=== PATIENT | female | born 1980 | race Caucasian/White ===

== ENCOUNTER 2017-02-02 09:09 | Emergency (ER) | payer BC ==
[2017-02-02] MEDS ORDERED: Diphtheria,Pertussis(Acell),Tetanus Vaccine 0.5 ML SDV inactive IM ONE (09:51)
[2017-02-02] MEDS ORDERED: Lidocaine 1% 50 ML MDV INJECT ONE (10:58)
--- NOTE | 2017-02-02 11:41 | EDM.PDOC ---
ED HPI GENERAL MEDICAL PROBLEM - General Chief Complaint: Bite:Animal, Insect Stated Complaint: DOG BITE Time Seen by Provider: 02/02/17 09:47 Source of Information: Reports: Patient History Limitations: Reports: No Limitations - History of Present Illness INITIAL COMMENTS - FREE TEXT/NARRATIVE: The patient presents with a dog bite. She has 2 dogs and she took 1 dog out and the other dog accidentally shut a locked door and locked her out. She went up to the neighbors to get an extra vargas and their dog and her dog got into a fight. She tried to break them up and she got bit in the left knee and left index finger. Her tetanus is not up to date. She is right handed. The dogs are up to date with their shots and they can be observed for 10 days. The police came to talk with the patient. Onset: Sudden Duration: Minutes: Location: Reports: Upper Extremity, Left (Index finger), Lower Extremity, Left ( Knee) Quality: Reports: Sharp Severity: Moderate Improves with: Reports: None Worsens with: Reports: None Associated Symptoms: Reports: No Other Symptoms Left Leg Pain Score (Numeric/FACES): 5 - Related Data Allergies Allergy/AdvReac Type Severity Reaction Status Date / Time Penicillins Allergy Anaphylactic Verified 02/02/17 09:26 Shock Home Meds: Home Meds Doxycycline [Vibramycin] 100 mg PO Q12HR #20 cap 02/02/17 [Rx] Esomeprazole Magnesium [Nexium 24Hr] 20 mg PO DAILY 02/02/17 [History] Past Medical History HEENT History: Reports: Impaired Vision Cardiovascular History: Reports: Other (See Below) 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) Other OB/BYN History: eposcopy Musculoskeletal History: Reports: Arthritis Oncologic (Cancer) History: Reports: Cervix - Past Surgical History HEENT Surgical History: Reports: Other (See Below) Other HEENT Surgeries/Procedures: ear surgery Social & Family History - Family History Family Medical History: Noncontributory - Tobacco Use Smoking Status *Q: Never Smoker - Caffeine Use Caffeine Use: Reports: Coffee, Soda - Recreational Drug Use Recreational Drug Use: No ED ROS GENERAL - Review of Systems Review Of Systems: See Below Constitutional: Reports: No Symptoms HEENT: Reports: No Symptoms Respiratory: Reports: No Symptoms Cardiovascular: Reports: No Symptoms Endocrine: Reports: No Symptoms GI/Abdominal: Reports: No Symptoms : Reports: No Symptoms Musculoskeletal: Reports: Other (left knee puncture wounds and injury to her left index finger) Neurological: Reports: No Symptoms ED EXAM, ANIMAL BITE - Physical Exam Exam: See Below Exam Limited By: No Limitations General Appearance: Alert, No Apparent Distress Ears: Normal External Exam Nose: Normal Inspection Head: Atraumatic, Normocephalic Neck: Normal Inspection Respiratory/Chest: No Respiratory Distress Extremities: Other (4 puncture wounds and abrasion just distal to the left knee. There is mild to moderate bleeding. There is a small puncture wound to her left index finger and edema and ecchymosis to the distal index finger. She has good sensation and pulses distally.) ED ANIMAL BITE PROCEDURES - Laceration/Wound Repair Left Knee Lac/Wound Length In cm: 0.5 Appearance: Subcutaneous, Linear Distal NVT: Neuro & Vascular Intact, No Tendon Injury Anesthetic Type: Local Local Anesthesia - Lidocaine (Xylocaine): 1% Plain Skin Prep: Saline Exploration/Debridement/Repair: Wound Explored, in a Bloodless Field, Explored to Base Closed With: Sutures Suture Size: 3-0 # of Sutures: 1 Suture Type: Nylon, Interrupted, Simple Tetanus Status Addressed: Yes Complications: No Progress/Comments: I sutured 3 more of her puncture wounds. Course - Vital Signs Last Recorded V/S: Last Vital Signs Temp 97.8 F 02/02/17 09:21 Pulse 101 H 02/02/17 09:21 Resp 16 02/02/17 09:21 BP 120/93 H 02/02/17 09:21 Pulse Ox 99 02/02/17 09:21 - Orders/Labs/Meds Orders: Active Orders 24 hr Category Date Time Status Vaccines to be Administered [RC] PER UNIT ROUTINE Care 02/02/17 09:51 Active Fingers Second Digit Lt F1 [CR] Stat Exams 02/02/17 09:51 Taken Knee Min 4V Lt [CR] Stat Exams 02/02/17 09:50 Taken Meds: Medications Discontinued Medications Generic Name Dose Route Start Last Admin Trade Name Freq PRN Reason Stop Dose Admin Diphtheria/Tetanus/Acell Pertussis 0.5 ml 02/02/17 09:51 02/02/17 09:58 Boostrix IM 02/02/17 09:52 0.5 ml .ONCE ONE Administration Lidocaine HCl 50 ml 02/02/17 10:58 02/02/17 11:15 Xylocaine 1% INJECT 02/02/17 10:59 50 ml ONETIME ONE Administration - Re-Assessments/Exams Free Text/Narrative Re-Assessment/Exam: 02/02/17 11:45 Her x-rays look good. I wanted to leave the wound open to avoid infection but the patient wanted them closed up. I explained she is at higher risk of infection. She understands. I will give her some doxycycline. 02/02/17 11:47 I am worried she may have a tendon injury to her left index finger. When she relaxes she has a swan neck deformity. I will splint her and have her follow up with Dr Broderick. Departure - Departure Time of Disposition: 11:50 Disposition: Home, Self-Care 01 Condition: good Clinical Impression: Dog bite Qualifiers: Encounter type: initial encounter Qualified Code(s): W54.0XXA - Bitten by dog, initial encounter Finger sprain Qualifiers: Encounter type: initial encounter Finger: index finger Sprain of finger site: other site Laterality: left Qualified Code(s): S63.691A - Other sprain of left index finger, initial encounter - Discharge Information Prescriptions: Doxycycline [Vibramycin] 100 mg PO Q12HR #20 cap Referrals: Raymond Broderick MD [Physician] - 1 Week Forms: ED Department Discharge Additional Instructions: Wash the wounds with warm soapy water 2 times per day and apply antibiotic ointment after. The sutures can come out in 7 to 10 days. Take the doxycycline 1 pill 2 times per day for 10 days. Take tylenol or motrin for pain. Look for any sign of infection such as redness, swelling, pain or drainage. Please return if you are worse. Wear the finger splint and follow up with Dr Broderick in 1 to 2 weeks. - My Orders Last 24 Hours: My Active Orders 02/02/17 09:50 Knee Min 4V Lt [CR] Stat 02/02/17 09:51 Vaccines to be Administered [RC] PER UNIT ROUTINE Fingers Second Digit Lt F1 [CR] Stat - Assessment/Plan Last 24 Hours: My Active Orders 02/02/17 09:50 Knee Min 4V Lt [CR] Stat 02/02/17 09:51 Vaccines to be Administered [RC] PER UNIT ROUTINE Fingers Second Digit Lt F1 [CR] Stat
[2017-02-02 12:14] VITALS: BP 120/91
--- NOTE | 2017-02-02 12:55 | CR ---
Left knee: Four views of the left knee were obtained. Comparison: No previous knee exam. Small amount of soft tissue air noted anteriorly. Mild soft tissue swelling is identified. Medial and lateral joint spaces are maintained in height. No joint effusion is seen. No fracture or other bony abnormality is seen. Impression: 1. Soft tissue findings. No acute bony abnormality is seen. Diagnostic code #3
--- NOTE | 2017-02-02 12:55 | CR ---
Left second finger: Four views of left second finger were obtained. Mild soft tissue swelling is seen. No opaque foreign object is identified. No fracture or other bony abnormality is seen. Impression: 1. Mild soft tissue swelling. Other portions of the left second finger exam are unremarkable. Diagnostic code #2
== END 2017-02-02 12:00 | disposition home or self-care (01) ==
LOC: JD.ED 09:09
DX: S81.052A Open bite, left knee, initial encounter (principal); S61.251A Open bite of left index finger without damage to nail, initial encounter; S63.691A Other sprain of left index finger, initial encounter; Z23 Encounter for immunization; Z88.0 Allergy status to penicillin; Z85.41 Personal history of malignant neoplasm of cervix uteri; Z79.899 Other long term (current) drug therapy; Z98.890 Other specified postprocedural states; W54.0XXA Bitten by dog, initial encounter
CPT/HCPCS: 12001; 73140-26-F1; 73140-F1; 73564-26-LT; 73564-LT; 90471; 90715; 99283-25; 99284-25

== ENCOUNTER 2018-12-23 15:31 | Emergency (ER) | payer BC, OTHER ==
[2018-12-23] MEDS ORDERED: Ketorolac 30 MG/ML SDV IM ONE (16:07)
[2018-12-23] MEDS ORDERED: Ketorolac 30 MG/ML SDV ONE (16:18)
--- NOTE | 2018-12-23 16:23 | EDM.PDOC ---
<Yonny Palmer - Last Filed: 12/23/18 16:25> ED HPI GENERAL MEDICAL PROBLEM - General Chief Complaint: Upper Extremity Injury/Pain Stated Complaint: RIGHT WRIST INJURY Time Seen by Provider: 12/23/18 15:37 - Related Data Allergies Allergy/AdvReac Type Severity Reaction Status Date / Time amoxicillin Allergy Airway Verified 12/23/18 15:43 Tightness Penicillins Allergy Anaphylactic Verified 12/23/18 15:42 Shock Home Meds: Home Meds Esomeprazole Magnesium [Nexium 24Hr] 20 mg PO DAILY 02/02/17 [History] Clindamycin HCl 300 mg PO TID 5 Days #15 capsule 12/23/18 [Rx] Doxycycline [Vibramycin] 100 mg PO BID 5 Days #10 cap 12/23/18 [Rx] Saccharomyces Boulardii [Florastor] 250 mg PO BID #30 capsule 12/23/18 [Rx] medroxyPROGESTERone Acetate [Depo-Provera] 150 mg IM ASDIRECTED 12/23/18 [ History] ED EXAM, GENERAL - Physical Exam Exam Limited By: No Limitations General Appearance: Alert, WD/WN, No Apparent Distress Eye Exam: Bilateral Eye: Normal Inspection Respiratory/Chest: No Respiratory Distress, Lungs Clear, Normal Breath Sounds, No Accessory Muscle Use, Chest Non-Tender Cardiovascular: Normal Peripheral Pulses, Regular Rate, Rhythm, No Edema, No Gallop, No JVD, No Murmur, No Rub Peripheral Pulses: 2+: Radial (L), Radial (R) Extremities: Normal Capillary Refill, Arm Pain (One 3 cm superficial laceration noted on the distal aspect of the posterior RIGHT forearm near the styloid process. Soft tissue swelling on the posterior aspect of the proximal RIGHT forearm.), Limited Range of Motion (AROM-is limited due to increased pain. PROM- full), Redness. No: Increased Warmth Neurological: Alert, Oriented, Normal Cognition, Normal Gait, No Motor/Sensory Deficits Psychiatric: Normal Affect, Normal Mood Skin Exam: Warm, Dry, Intact, No Rash, Erythema (located around each dog bite injury. ) Course - Vital Signs Last Recorded V/S: Last Vital Signs Temp 97.9 F 12/23/18 15:38 Pulse 102 H 12/23/18 15:38 Resp 16 12/23/18 15:38 BP 138/80 12/23/18 15:38 Pulse Ox 100 12/23/18 15:38 - Orders/Labs/Meds Orders: Active Orders 24 hr Category Date Time Status Wrist Comp Min 3V Rt [CR] Stat Exams 12/23/18 16:02 Ordered Meds: Medications Discontinued Medications Generic Name Dose Route Start Last Admin Trade Name Gabriella PRN Reason Stop Dose Admin Ketorolac Tromethamine 30 mg 12/23/18 16:07 12/23/18 16:21 Toradol IM 12/23/18 16:08 30 mg ONETIME ONE Administration Departure - Departure Disposition: Home, Self-Care 01 Clinical Impression: Right wrist sprain Dog bite Qualifiers: Encounter type: initial encounter Qualified Code(s): W54.0XXA - Bitten by dog, initial encounter - Discharge Information Prescriptions: Clindamycin HCl 300 mg PO TID 5 Days #15 capsule Doxycycline [Vibramycin] 100 mg PO BID 5 Days #10 cap Saccharomyces Boulardii [Florastor] 250 mg PO BID #30 capsule Instructions: Animal Bite, Adult, [id number], Cryotherapy, [id number], Wrist Sprain, Adult Referrals: PCP,None [Primary Care Provider] - Forms: ED Department Discharge Additional Instructions: You were seen in the ED today for dog bite and fall on your wrist. Your Xray was negative for fracture, but it is possible that you may have sprained your wrist. Therefore, you will be sent home with a splint and recommend you follow up with orthopedics if not better in a week or so. You can make an appointment with orthopedic Dr. Broderick by calling . In the mean time make sure to rest, ice and use over the counter ibuprofen for pain control. You will also be sent home with 2 antibiotics to prevent infection from the dog bite. You will need to take Doxycyline 100mg twice per day AND Clindamycin 300mg three times per day for 5 days for completion of treatment. Please take ALL of your your medications as prescribed, otherwise infection could get worse. Please return to ED if new or worsening symptoms. - My Orders Last 24 Hours: My Active Orders 12/23/18 16:02 Wrist Comp Min 3V Rt [CR] Stat - Assessment/Plan Last 24 Hours: My Active Orders 12/23/18 16:02 Wrist Comp Min 3V Rt [CR] Stat <Seble Olsen - Last Filed: 12/23/18 16:53> ED HPI GENERAL MEDICAL PROBLEM - General Source of Information: Reports: Patient History Limitations: Reports: No Limitations - History of Present Illness INITIAL COMMENTS - FREE TEXT/NARRATIVE: 38 yo F comes in for dog bite and a fall on her wrist after trying to separate her 2 dogs that were fighting. She was holding a dog and slipped and fell on her wrist in palmar flexion. She is now having 7/10 pain, with some tingling but denies any numbness. She states her hand "feels cold". She has limited active ROM bc "it feels stuck". Full passive ROM. Neurovascularly intact. Her tetanus is UTD. Dogs have been vaccinated for rabies. She is allergic to PCN. 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 Neurological History: Reports: Migraines Oncologic (Cancer) History: Reports: Cervix Other Oncologic History: pre cancerous cells - Infectious Disease History Infectious Disease History: Reports: Chicken Pox, Measles - Past Surgical History HEENT Surgical History: Reports: Other (See Below) Other HEENT Surgeries/Procedures: ear surgery Social & Family History - Family History Family Medical History: Noncontributory - Tobacco Use Smoking Status *Q: Never Smoker Second Hand Smoke Exposure: No - Caffeine Use Caffeine Use: Reports: Other Other Caffeine Use: powder mix drink with caffeine - Recreational Drug Use Recreational Drug Use: No Review of Systems - Review of Systems Review Of Systems: ROS reveals no pertinent complaints other than HPI. ED EXAM, GENERAL - Physical Exam Exam: See Below Head: Atraumatic, Normocephalic Neck: Normal Inspection, Supple, Non-Tender, Full Range of Motion Course - Re-Assessments/Exams Free Text/Narrative Re-Assessment/Exam: 12/23/18 16:16 I have ordered XR of R wrist and Toradol for pain. 12/23/18 16:[address] Harrington- nothing acute seen. Will send pt home with a splint and can f/u with ortho if not better in a week or so. Will also send home with Doxycycline 100mg BID and Clindamycin 300 TID x 4 days for prophylaxis for dog bite. Departure - Departure Time of Disposition: 16:38 Condition: Fair - Discharge Information *PRESCRIPTION DRUG MONITORING PROGRAM REVIEWED*: Not Applicable *COPY OF PRESCRIPTION DRUG MONITORING REPORT IN PATIENT ALECIA: Not Applicable
[2018-12-23 17:37] VITALS: BP 109/77
--- NOTE | 2018-12-24 06:22 | CR ---
Right wrist: Four views of the right wrist were obtained. Comparison: No prior wrist exam. Joint spaces are preserved. No fracture, dislocation or other bony abnormality is seen. Impression: 1. No abnormality is seen on right wrist exam. Diagnostic code #1
== END 2018-12-23 17:10 | disposition home or self-care (01) ==
LOC: JD.ED 15:31
DX: S51.851A Open bite of right forearm, initial encounter (principal); S63.501A Unspecified sprain of right wrist, initial encounter; Z88.1 Allergy status to other antibiotic agents; Z88.0 Allergy status to penicillin; Z79.899 Other long term (current) drug therapy; W54.0XXA Bitten by dog, initial encounter
CPT/HCPCS: 73110; 96372; 99283; J1885

== ENCOUNTER 2019-02-07 18:10 | Emergency (ER) | payer OTHER ==
[2019-02-07 18:16] VITALS: BP 148/107
[2019-02-07] MEDS ORDERED: Acetaminophen/oxyCODONE 325-5 MG Tab PO ONE (18:49)
[2019-02-07] MEDS ORDERED: Ketorolac 60 MG/2 ML SDV ONE (19:21)
[2019-02-07] MEDS ORDERED: Bupivacaine 0.5% 10 ML SDV ONE (19:21)
[2019-02-07] MEDS ORDERED: Lidocaine 1% 10 ML MDV ONE (19:21)
[2019-02-07] MEDS ORDERED: Ketorolac 60 MG/2 ML SDV IM ONE (19:26)
[2019-02-07] MEDS ORDERED: Bupivacaine 0.5% 10 ML SDV INJECT ONE (20:04)
[2019-02-07] MEDS ORDERED: Lidocaine 1% 10 ML MDV INJECT ONE (20:05)
--- NOTE | 2019-02-07 21:24 | EDM.PDOC ---
ED HPI GENERAL MEDICAL PROBLEM - General Chief Complaint: Lower Extremity Injury/Pain Stated Complaint: L RING FINGER INJURY Time Seen by Provider: 02/07/19 19:00 Source of Information: Reports: Patient History Limitations: Reports: No Limitations - History of Present Illness INITIAL COMMENTS - FREE TEXT/NARRATIVE: 38-year-old female presents for treatment of a ring stuck on her left hand ring finger. Patient reports she was reaching into a bin at work and got her hand caught. She states that the ring moved up to her PIP joint. She pulled her hand out and had significant pain so therefore she pushed the ring more proximally. She states that her finger immediately swelled and she has been unable to remove her wedding ring since. When she is reporting significant pain. She says sensation to light touch but states that he does feel rather numb and tingly. Has a small laceration under the ring. 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 Neurological History: Reports: Migraines Psychiatric History: Reports: None Endocrine/Metabolic History: Reports: None Hematologic History: Reports: None Immunologic History: Reports: None Oncologic (Cancer) History: Reports: Cervix Other Oncologic History: pre cancerous cells Dermatologic History: Reports: None - Infectious Disease History Infectious Disease History: Reports: Chicken Pox, Measles - Past Surgical History HEENT Surgical History: Reports: Other (See Below) Other HEENT Surgeries/Procedures: ear surgery Social & Family History - Family History Family Medical History: Noncontributory - Tobacco Use Smoking Status *Q: Never Smoker - Caffeine Use Caffeine Use: Reports: None Other Caffeine Use: powder mix drink with caffeine - Recreational Drug Use Recreational Drug Use: No Review of Systems - Review of Systems Review Of Systems: See Below Musculoskeletal: Reports: Joint Swelling (left rign finger greatest at the PIOP joint) Skin: Reports: Wound (small laceration to the left ring finger, proximal) Neurological: Reports: Numbness (left ring finger) ED EXAM, GENERAL - Physical Exam Exam: See Below Exam Limited By: No Limitations General Appearance: Alert, WD/WN, No Apparent Distress Respiratory/Chest: No Respiratory Distress Cardiovascular: Normal Peripheral Pulses, Regular Rate, Rhythm Peripheral Pulses: 3+: Radial (L) Extremities: Normal Capillary Refill, Limited Range of Motion (due to swelling to the left hand 4th finger), Redness (left hand 4th finger), Other (ring on the left hand 4th finger; PIP joint very swollen). No: Increased Warmth Neurological: Alert, Oriented, Normal Cognition Psychiatric: Normal Affect, Normal Mood Skin Exam: Warm, Dry, Normal Color, Wound/Incision (0.5 superficial cut to the dorsal left hand ring finge, proximal) Course - Vital Signs Last Recorded V/S: Last Vital Signs Temp 98.9 F 02/07/19 18:14 Pulse 92 02/07/19 18:14 Resp 16 02/07/19 18:14 BP 148/107 H 02/07/19 18:14 Pulse Ox 100 02/07/19 18:14 - Orders/Labs/Meds Meds: Medications Discontinued Medications Generic Name Dose Route Start Last Admin Trade Name Gabriella PRN Reason Stop Dose Admin Bupivacaine HCl Confirm 02/07/19 19:21 02/07/19 20:06 Sensorcaine-Mpf 0.5% Administered 02/07/19 19:22 Not Given Dose 10 ml .ROUTE .STK-MED ONE Bupivacaine HCl 10 ml 02/07/19 20:04 02/07/19 20:00 Sensorcaine-Mpf 0.5% INJECT 02/07/19 20:05 10 ml ONETIME ONE Administration Ketorolac Tromethamine Confirm 02/07/19 19:21 02/07/19 19:32 Toradol Administered 02/07/19 19:22 Not Given Dose 60 mg .ROUTE .STK-MED ONE Ketorolac Tromethamine 60 mg 02/07/19 19:26 02/07/19 19:25 Toradol IM 02/07/19 19:27 60 mg ONETIME ONE Administration Lidocaine HCl Confirm 02/07/19 19:21 02/07/19 20:06 Xylocaine 1% Administered 02/07/19 19:22 Not Given Dose 10 ml .ROUTE .STK-MED ONE Lidocaine HCl 10 ml 02/07/19 20:05 02/07/19 20:42 Xylocaine 1% INJECT 02/07/19 20:06 Not Given ONETIME ONE Oxycodone/Acetaminophen 1 tab 02/07/19 18:49 02/07/19 18:52 Percocet 325-5 Mg PO 02/07/19 18:50 1 tab ONETIME ONE Administration - Radiology Interpretation Free Text/Narrative:: x-ray of the left hand ring finger shows no acute fracture or dislocation. - Re-Assessments/Exams Free Text/Narrative Re-Assessment/Exam: 02/07/19 21:10 multiple attempts were made to cut the patient's ring, unfortunately, the ring was sauntered multiple times and she actually has 3 rings making one think band. A ring cutter was attempted but this was unsuccessful. Dr. Botello was then recruited to help. He performed a digital block with 4 ccs of Marcaine, 0.5%, this gave the patient adequate anesthesia. He then heavy wrapped her finger with packing material and left this on for approximately 15- 20 minutes. This allowed the finger to decrease in size and pushed the interstitial fluid back into the finger. He then quickly unwrapped the finger, greased the finger with butter and removes the ring successfully. X-rays were taken which did not show any fractures. this was reviewed with the patient. We will discharge her home at this time. Discharge instructions as documented. Departure - Departure Time of Disposition: 21:13 Disposition: Home, Self-Care 01 Condition: Good Clinical Impression: Finger swelling - Discharge Information *PRESCRIPTION DRUG MONITORING PROGRAM REVIEWED*: No *COPY OF PRESCRIPTION DRUG MONITORING REPORT IN PATIENT ALECIA: No Referrals: PCP,None [Primary Care Provider] - Forms: ED Department Discharge Additional Instructions: ice, elevation and ibuprofen to help with the swelling. Follow-up with PCP as needed. Please return to the ER should your symptoms change or worsen.
--- NOTE | 2019-02-08 19:35 | CR ---
Left fourth finger: Four views centered to the left fourth finger were obtained. Comparison: No prior fourth finger exam. Soft tissue swelling is noted. Joint spaces are preserved. Incidental cyst is noted within the third metacarpal head. No acute fracture, dislocation or other bony abnormality is seen. Impression: 1. Soft tissue swelling. No acute bony abnormality is seen on left fourth finger exam. Diagnostic code #2
== END 2019-02-07 21:40 | disposition home or self-care (01) ==
LOC: JD.ED 18:10
DX: M79.89 Other specified soft tissue disorders (principal); Z88.1 Allergy status to other antibiotic agents; Z88.0 Allergy status to penicillin; Z79.899 Other long term (current) drug therapy
CPT/HCPCS: 64450; 73140; 96372; 99283; A9270; J1885; J3490

== ENCOUNTER 2019-05-14 07:53 | Day surgery (SDC) | payer OTHER ==
--- NOTE | 2019-05-13 13:11 | PCM.PREANE ---
Preanesthetic Assessment - Anesthesia/Transfusion/Family Hx Anesthesia History: Prior Anesthesia Without Reaction Family History of Anesthesia Reaction: No Transfusion History: No Prior Transfusion(s) Intubation History: Unknown - Review of Systems General: No Symptoms Pulmonary: No Symptoms (Quit smokin ETOH: occasionally) Cardiovascular: Palpitations (Fish oil's have eliminated palpitations) Gastrointestinal: No Symptoms (GERD treated with nexium) Neurological: No Symptoms (Motion sickness with carnival rides), Headache ( migraines on occasion.) Other: Reports: None - Physical Assessment NPO Status Date: 05/13/19 NPO Status Time: 22:30 Vital Signs: BP:116/87 HR:78 RESP:16 SAT:97% Temp:98.0F Height: 1.6 m Weight: 72.575 kg ASA Class: 2 Mental Status: Alert & Oriented x3 Airway Class: Mallampati = 2 Dentition: Reports: Normal Dentition, Caries Thyro-Mental Finger Breadths: 3 Mouth Opening Finger Breadths: 3 ROM/Head Extension: Full Lungs: Clear to Auscultation, Normal Respiratory Effort Cardiovascular: Regular Rate, Regular Rhythm, No Murmurs - Lab Values: Laboratory Last Values MRSA (PCR) Negative 05/12/19 09:39 - Imaging/EKG Impressions: EKG: Sinus bradycardia rate=56, old anteroseptal infarct noted, poor r wave progression, mild right axis deviation. - Allergies Allergies/Adverse Reactions: Allergies Allergy/AdvReac Type Severity Reaction Status Date / Time amoxicillin Allergy Airway Verified 02/07/19 18:16 Tightness Penicillins Allergy Anaphylactic Verified 02/07/19 18:16 Shock - Anesthesia Plan Pre-Op Medication Ordered: None - Acknowledgements Anesthesia Type Planned: General Anesthesia Pt an Appropriate Candidate for the Planned Anesthesia: Yes Alternatives and Risks of Anesthesia Discussed w Pt/Guardian: Yes Pt/Guardian Understands and Agrees with Anesthesia Plan: Yes PreAnesthesia Questionnaire HEENT History: Reports: Impaired Vision Cardiovascular History: Reports: Other (See Below) 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 Neurological History: Reports: Migraines Psychiatric History: Reports: None Endocrine/Metabolic History: Reports: None Hematologic History: Reports: None Immunologic History: Reports: None Oncologic (Cancer) History: Reports: Cervix Other Oncologic History: pre cancerous cells Dermatologic History: Reports: None - Infectious Disease History Infectious Disease History: Reports: Chicken Pox, Measles - Past Surgical History HEENT Surgical History: Reports: Other (See Below) Other HEENT Surgeries/Procedures: ear surgery - HOME MEDS Home Medications: Home Meds Esomeprazole Magnesium [Nexium 24Hr] 20 mg PO DAILY 02/02/17 [History] Norgestimate-Ethinyl Estradiol [Ortho Tri-Cyclen Lo Tablet] 1 tab PO DAILY 02/07 [History] Acetaminophen/HYDROcodone [Dozier 325-5 MG] 1 - 2 tab PO Q6H PRN #15 tablet 05/14 [Rx] Aspirin 325 mg PO BID #84 tab 05/14/19 [Rx] - CURRENT (IN HOUSE) MEDS Current Meds: Current Medications Epinephrine HCl (Adrenalin) 3 mg .XX ONETIME ELIAS Stop: 05/14/19 16:00 Lactated Ringer's (Ringers, Lactated) 1,000 mls @ 125 mls/hr IV ASDIRECTED ELIAS Stop: 05/14/19 23:00 Lidocaine/Sodium Bicarbonate (Buffered Lidocaine 1% In Ns 8.4%) 0.25 ml IDERM ONETIME PRN PRN Reason: Prior to IV Start Stop: 05/14/19 18:00 Sodium Chloride (Saline Flush) 10 ml FLUSH ASDIRECTED PRN PRN Reason: Keep Vein Open Stop: 05/14/19 18:00
[~2019-05-14 07:53] MED LIST: Clindamycin Phosphate in D5W 900 MG in Premix Bag 1 BAG IV SCH; Dexamethasone 4 MG/ML SDV ONE; EPINEPHrine 1 MG/ML 30 ML MDV SCH; HYDROmorphone 0.5 MG/0.5 ML Syringe ONE; Ketorolac 30 MG/ML SDV ONE; Lactated Ringers 1,000 ML IV SCH; Lactated Ringers 1,000 ML ONE; Lidocaine 1% 6 ML ONE; Lidocaine 1%/Sod Bicarbonate in NS 8.4% 1 ML Syringe IDERM PRN; Midazolam 1 MG/ML 2 ML SDV ONE; Ondansetron 4 MG/2 ML SDV ONE; Propofol 200 MG/20 ML SDV ONE; Sodium Chloride 0.9% 10 ML Syringe FLUSH PRN; fentaNYL 250 MCG/5 ML SDV ONE
[2019-05-14] MEDS ORDERED: Bupivacaine 0.25% 10 ML SDV ONE (09:45)
[2019-05-14] MEDS ORDERED: Scopolamine 1.5 MG Transdermal Patch TRDERM PRN (09:47)
[2019-05-14] MEDS ORDERED: HYDROmorphone 0.5 MG/0.5 ML Syringe IVPUSH PRN (10:29)
[2019-05-14] MEDS ORDERED: Ondansetron 4 MG/2 ML SDV IVPUSH PRN (10:29)
[2019-05-14] MEDS ORDERED: diphenhydrAMINE 50 MG/ML SDV IVPUSH PRN (10:29)
[2019-05-14] MEDS ORDERED: fentaNYL 100 MCG/2 ML SDV IVPUSH PRN (10:29)
[2019-05-14] MEDS ORDERED: ePHEDrine 50 MG/ML SDV IVPUSH PRN (10:29)
[2019-05-14] MEDS ORDERED: Phenylephrine 1 MG in Sodium Chloride 0.9% 10 ML IV SCH (10:30)
--- NOTE | 2019-05-14 11:10 | PCM.POSTAN ---
POST ANESTHESIA ASSESSMENT - MENTAL STATUS Mental Status: Alert - VITAL SIGNS Vital Signs: Last Vital Signs Please refer to PACU nurses notes. - RESPIRATORY Respiratory Status: Respiratory Rate WNL, Airway Patent, O2 Saturation Stable, Supplemental Oxygen - CARDIOVASCULAR CV Status: Pulse Rate WNL, Blood Pressure Stable - GASTROINTESTINAL GI Status: No Symptoms - POST OP HYDRATION Hydration Status: Adequate & Stable
--- NOTE | 2019-05-14 12:31 | PCM48HPAN ---
Post Anesthesia Note - EVALUATION WITHIN 48HRS OF ANESTHETIC Vital Signs in Normal Range: Yes Patient Participated in Evaluation: Yes Respiratory Function Stable: Yes Airway Patent: Yes Cardiovascular Function Stable: Yes Hydration Status Stable: Yes Pain Control Satisfactory: Yes Nausea and Vomiting Control Satisfactory: Yes Mental Status Recovered: Yes Vital Signs: Last Vital Signs Temp 36.2 C 05/14/19 11:45 Pulse 78 05/14/19 08:05 Resp 14 05/14/19 11:50 BP 119/72 05/14/19 11:50 Pulse Ox 100 05/14/19 11:50
[2019-05-14 14:04] VITALS: BP 107/77; PULSE 71
--- NOTE | 2019-05-19 08:50 | PCM.OPNOTE ---
- General Post-Op/Procedure Note Date of Surgery/Procedure: 05/14/19 Operative Procedure(s): right knee video arthroscopy with chondroplasty of lateral femoral condyle and partial synovectomy of fat pad and plica Pre Op Diagnosis: right knee pain with chondromalacia Post-Op Diagnosis: Same Anesthesia Technique: General LMA, Local Primary Surgeon: Raymond Broderick Anesthesia Provider: Cielo Kim [employer] Attendant: Rosy Badillo in mLs: 5 Complications: None Condition: Good
--- NOTE | 2019-05-19 10:05 | OR ---
DATE OF OPERATION: 05/14/2019 SURGEON: Raymond Broderick MD OPERATION PERFORMED: Right knee video arthroscopy with chondroplasty of lateral femoral condyle and partial synovectomy and fat pad and plica. PREOPERATIVE DIAGNOSIS: Right knee pain with chondromalacia. 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 ANESTHESIA: General LMA with local. ANESTHESIA PROVIDER: Cielo Kim CRNA. RESEARCH AND DEVELOPMENT SPECIALIST: Dr. Rosy Badillo PA-C. ESTIMATED BLOOD LOSS: 5 mL. COMPLICATIONS: None. CONDITION: Stable. DESCRIPTION OF PROCEDURE: Patient was identified in the preop holding area. Proper site was marked and identified by the surgeon. The patient was taken back to the operating theater, where after adequate anesthesia, the patient's left lower extremity was placed in a well leg cummings. Right lower extremity had a nonsterile tourniquet applied and then was placed in a C-clamp cummings. Foot of the bed was then lowered. Right lower extremity was then sterilely prepped and draped in the usual sterile fashion. OR time-out was performed. The patient received 2 g IV Ancef. Right lower extremity was exsanguinated, and tourniquet was insufflated to 250 mmHg. Standard anterolateral portal incision was made, and scope trocar was introduced to the knee joint. Patellofemoral joint showed grade 1 chondromalacia of the patella. The patient did have significant synovial hypertrophy of the fat pad as well as plica on the medial side that did show significant erythema. At this time, attention was turned to the medial compartment. With the use of a spinal needle, anteromedial portal was created, and the probe was introduced. The patient's medial meniscus was intact. There was very little chondromalacia to the medial compartment. ACL was intact in the notch. Lateral compartment showed significant grade 2/3 chondromalacia changes of the lateral femoral condyle with a loose fragment noted. Tibial plateau showed grade 1 chondromalacia. At this time, a chondroplasty of lateral femoral condyle was done back to a stable rim of cartilage. Attention was turned back to the fat pad as well as the plica. The plica was resected as well as a partial synovectomy and fat pad was completed back to a stable rim. Excess saline was drained from the knee. 3-0 nylon sutures were used for closure of skin. The patient was placed in a sterile soft dressing and sent to PACU in stable condition. KIA /[id number]
== END 2019-05-14 12:45 | disposition home or self-care (01) ==
LOC: JD.SDS 07:53
PROVIDERS: ATTEND Orthopaedic Surgery
DX: M22.41 Chondromalacia patellae, right knee (principal); M67.261 Synovial hypertrophy, not elsewhere classified, right lower leg; M67.51 Plica syndrome, right knee; K21.9 Gastro-esophageal reflux disease without esophagitis; Z88.0 Allergy status to penicillin; Z87.891 Personal history of nicotine dependence; Z79.82 Long term (current) use of aspirin; Z79.899 Other long term (current) drug therapy
CPT/HCPCS: 29875; 81025; 87641; A9270; J0171; J1100; J1170; J1885; J2001; J2250; J2405; J2704; J3010; J3490; J7120; 01400

== ENCOUNTER 2019-10-15 06:37 | Day surgery (SDC) | payer OTHER ==
[~2019-10-15 06:37] MED LIST changes: +Clindamycin Phosphate 900 MG in Sodium Chloride 0.9% 100 ML IV SCH; +Clindamycin Phosphate in D5W 900 MG in Premix Bag 1 BAG IV ONE; -Clindamycin Phosphate in D5W 900 MG in Premix Bag 1 BAG IV SCH; -Dexamethasone 4 MG/ML SDV ONE; -EPINEPHrine 1 MG/ML 30 ML MDV SCH; -HYDROmorphone 0.5 MG/0.5 ML Syringe ONE; -Ketorolac 30 MG/ML SDV ONE; -Lactated Ringers 1,000 ML ONE; -Lidocaine 1% 6 ML ONE; -Midazolam 1 MG/ML 2 ML SDV ONE; -Ondansetron 4 MG/2 ML SDV ONE; -Propofol 200 MG/20 ML SDV ONE; -fentaNYL 250 MCG/5 ML SDV ONE
[2019-10-15] MEDS ORDERED: Bupivacaine 0.25% 10 ML SDV ONE (06:44)
--- NOTE | 2019-10-15 06:51 | PCM.PREANE ---
Preanesthetic Assessment - Anesthesia/Transfusion/Family Hx Anesthesia History: Prior Anesthesia Without Reaction Family History of Anesthesia Reaction: No Transfusion History: No Prior Transfusion(s) Intubation History: Unknown - Review of Systems General: No Symptoms Pulmonary: No Symptoms Cardiovascular: No Symptoms Gastrointestinal: No Symptoms Neurological: No Symptoms Other: Reports: None - Physical Assessment NPO Status Date: 10/14/19 NPO Status Time: 20:00 Height: 1.6 m Weight: 73.482 kg ASA Class: 2 Mental Status: Alert & Oriented x3 Airway Class: Mallampati = 1 Dentition: Reports: Normal Dentition Thyro-Mental Finger Breadths: 3 Mouth Opening Finger Breadths: 3 ROM/Head Extension: Full Lungs: Clear to Auscultation, Normal Respiratory Effort Cardiovascular: Regular Rate, Regular Rhythm - Lab Values: Laboratory Last Values MRSA (PCR) Negative 09/22/19 09:08 - Allergies Allergies/Adverse Reactions: Allergies Allergy/AdvReac Type Severity Reaction Status Date / Time amoxicillin Allergy Airway Verified 10/14/19 15:33 Tightness Penicillins Allergy Anaphylactic Verified 10/14/19 15:33 Shock - Blood Blood Available: No Product(s) Available: None - Anesthesia Plan Pre-Op Medication Ordered: None - Acknowledgements Anesthesia Type Planned: General Anesthesia Pt an Appropriate Candidate for the Planned Anesthesia: Yes Alternatives and Risks of Anesthesia Discussed w Pt/Guardian: Yes Pt/Guardian Understands and Agrees with Anesthesia Plan: Yes PreAnesthesia Questionnaire HEENT History: Reports: Impaired Vision Cardiovascular History: Reports: Other (See Below) Other Cardiovascular History: abnormal EKG Respiratory History: Reports: None Gastrointestinal History: Reports: None Genitourinary History: Reports: UTI, Recurrent 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 Musculoskeletal History: Reports: Arthritis, Other (See Below) Other Musculoskeletal History: finger injury, knee pain, gait abnormality Neurological History: Reports: Migraines Psychiatric History: Reports: None Endocrine/Metabolic History: Reports: None Hematologic History: Reports: None Immunologic History: Reports: None Oncologic (Cancer) History: Reports: Cervix Other Oncologic History: pre cancerous cells Dermatologic History: Reports: None - Infectious Disease History Infectious Disease History: Reports: Chicken Pox, Measles - Past Surgical History Head Surgeries/Procedures: Reports: None HEENT Surgical History: Reports: Other (See Below) Other HEENT Surgeries/Procedures: ear surgery Cardiovascular Surgical History: Reports: None Respiratory Surgical History: Reports: None GI Surgical History: Reports: None Female Surgical History: Reports: None Neurological Surgical History: Reports: None Musculoskeletal Surgical History: Reports: Arthroscopic Knee Dermatological Surgical History: Reports: None - SUBSTANCE USE Smoking Status *Q: Former Smoker Tobacco Use Within Last Twelve Months: Cigarettes Second Hand Smoke Exposure: No Days Per Week of Alcohol Use: 5 Number of Drinks Per Day: 1 Total Drinks Per Week: 5 Recreational Drug Use History: No - HOME MEDS Home Medications: Home Meds Esomeprazole Magnesium [Nexium 24Hr] 20 mg PO DAILY 02/02/17 [History] Norgestimate-Ethinyl Estradiol [Ortho Tri-Cyclen Lo Tablet] 1 tab PO DAILY 02/07 [History] Multivitamin [Daily Multiple Vitamin] 1 tab PO DAILY 10/14/19 [History] - CURRENT (IN HOUSE) MEDS Current Meds: Current Medications Lactated Ringer's (Ringers, Lactated) 1,000 mls @ 125 mls/hr IV ASDIRECTED ELIAS Stop: 10/15/19 23:00 Lidocaine/Sodium Bicarbonate (Buffered Lidocaine 1% In Ns 8.4%) 0.25 ml IDERM ONETIME PRN PRN Reason: Prior to IV Start Stop: 10/15/19 18:00 Sodium Chloride (Saline Flush) 10 ml FLUSH ASDIRECTED PRN PRN Reason: Keep Vein Open Stop: 10/15/19 18:00 Discontinued Medications Bupivacaine HCl (Sensorcaine-Mpf 0.25%) Confirm Administered Dose 10 ml .ROUTE .STK-MED ONE Stop: 10/15/19 06:45 Clindamycin Phosphate 900 mg/ (Premix) 50 mls @ 100 mls/hr IV ONETIME ONE Stop: 10/15/19 06:29
[2019-10-15] MEDS ORDERED: Scopolamine 1.5 MG Transdermal Patch TOP ONE (06:53)
[2019-10-15] MEDS ORDERED: Ondansetron 4 MG/2 ML SDV ONE (06:56)
[2019-10-15] MEDS ORDERED: Propofol 200 MG/20 ML SDV ONE (06:56)
[2019-10-15] MEDS ORDERED: Midazolam 1 MG/ML 2 ML SDV ONE (06:57)
[2019-10-15] MEDS ORDERED: Lidocaine 1% 4 ML ONE (06:57)
[2019-10-15] MEDS ORDERED: fentaNYL 250 MCG/5 ML SDV ONE (06:57)
[2019-10-15] MEDS ORDERED: Dexamethasone 4 MG/ML 5 ML MDV ONE (07:29)
[2019-10-15] MEDS ORDERED: Lactated Ringers 1,000 ML ONE (07:35)
[2019-10-15] MEDS ORDERED: HYDROmorphone 0.5 MG/0.5 ML Syringe ONE ×2 (07:48→07:49)
[2019-10-15] MEDS ORDERED: EPINEPHrine 1 MG/1 ML Amp ONE (08:00)
[2019-10-15] MEDS ORDERED: Ketorolac 30 MG/ML SDV IVPUSH PRN (08:23)
[2019-10-15] MEDS ORDERED: HYDROmorphone 0.5 MG/0.5 ML Syringe IVPUSH PRN (08:23)
[2019-10-15] MEDS ORDERED: fentaNYL 100 MCG/2 ML SDV IVPUSH PRN (08:23)
--- NOTE | 2019-10-15 08:24 | PCM.POSTAN ---
POST ANESTHESIA ASSESSMENT - MENTAL STATUS Mental Status: Alert, Oriented - VITAL SIGNS Vital Signs: Last Vital Signs Temp 36.7 C 10/15/19 08:07 Pulse 77 10/15/19 06:45 Resp 21 H 10/15/19 08:15 BP 130/87 10/15/19 08:15 Pulse Ox 97 10/15/19 08:15 - RESPIRATORY Respiratory Status: Respiratory Rate WNL, Airway Patent, O2 Saturation Stable, Supplemental Oxygen - CARDIOVASCULAR CV Status: Pulse Rate WNL, Blood Pressure Stable - GASTROINTESTINAL GI Status: No Symptoms - PAIN Pain Score: 0 - POST OP HYDRATION Hydration Status: Adequate & Stable - OBSERVATIONS Free Text/Narrative:: no anesthesia complications noted
[2019-10-15] MEDS ORDERED: Acetaminophen/HYDROcodone 325-5 MG Tab PO PRN (08:40)
--- NOTE | 2019-10-15 08:59 | PCM48HPAN ---
Post Anesthesia Note - EVALUATION WITHIN 48HRS OF ANESTHETIC Vital Signs in Normal Range: Yes Patient Participated in Evaluation: Yes Respiratory Function Stable: Yes Airway Patent: Yes Cardiovascular Function Stable: Yes Hydration Status Stable: Yes Pain Control Satisfactory: Yes Nausea and Vomiting Control Satisfactory: Yes Mental Status Recovered: Yes Vital Signs: Last Vital Signs Temp 36.4 C 10/15/19 08:45 Pulse 79 10/15/19 08:50 Resp 20 10/15/19 08:50 BP 127/88 10/15/19 08:50 Pulse Ox 99 10/15/19 08:50 - COMMENTS/OBSERVATIONS Free Text/Narrative:: no anesthesia complications noted
[2019-10-15] MEDS ORDERED: Ondansetron 4 MG/2 ML SDV IVPUSH STA (09:26)
[2019-10-15 09:35] VITALS: BP 127/89; PULSE 77
--- NOTE | 2019-10-21 07:18 | PCM.OPNOTE ---
- General Post-Op/Procedure Note Date of Surgery/Procedure: 10/15/19 Operative Procedure(s): left knee video arthroscopy with partial synovectomy and chondroplasty lateral femoral condyle Pre Op Diagnosis: left knee pain with chondromalacia Post-Op Diagnosis: left knee grade 3 lateral femoral condyle chondromalacia with plica and fat pad impingement Anesthesia Technique: General LMA, Local Primary Surgeon: Raymond Broderick Anesthesia Provider: Anirudh Weiss Metal Sorter: Diana Tobias EBJuan in mLs: 5 Complications: None Condition: Good
--- NOTE | 2019-10-21 12:43 | OR ---
DATE OF OPERATION: 10/15/2019 SURGEON: Raymond Broderick MD OPERATION PERFORMED: Left knee video arthroscopy with partial synovectomy and chondroplasty of lateral femoral condyle. PREOPERATIVE DIAGNOSIS: Left knee pain with chondromalacia. POSTOPERATIVE DIAGNOSIS: Left knee grade 3 lateral femoral condyle chondromalacia with plica and fat pad impingement. ANESTHESIA: General LMA with local. ANESTHESIA PROVIDER: Anirudh Weiss CRNA RADIO OPERATOR: Diana Tobias LPN ESTIMATED BLOOD LOSS: 5 mL. COMPLICATIONS: None. CONDITION: Stable. DESCRIPTION OF PROCEDURE: The patient was identified in the preop holding area where the proper site was marked and identified by the surgeon. The patient was taken back to the operative theater where, after adequate anesthesia, the patient's right lower extremity was placed in a well leg cummings. Left lower extremity had a nonsterile tourniquet applied. It was then placed in a C-clamp cummings. Foot of the bed was then lowered. Left lower extremity was then sterilely prepped and draped in the usual sterile fashion. OR time-out was performed. The patient received proper preoperative antibiotics. At this time, the left lower extremity was exsanguinated. Tourniquet was insufflated to 250 mmHg. Standard anterolateral portal was incised. Scope trocar was introduced. The patient was noted to have grade 1/2 chondromalacia at the patellofemoral joint, especially in the inferior pole. The patella was tracking centrally. The patient was noted to have significantly inflamed overgrowth and overgrown fat pad as well as a significant plica on the medial side. Attention was turned to the medial compartment. With the use of spinal needle, anteromedial portal was created. There was noted to be no meniscal tear on the medial side and only grade 1 chondromalacia with no full-thickness cartilage defects. ACL was intact in the notch. Lateral compartment did show a large defect, grade 3, with loose chondral flaps off the lateral femoral condyle. At this time, I did perform a chondroplasty of the lateral femoral condyle back to a smooth border roughly 2 cm x 1.5 cm. At this time, resection of the anterior fat pad was done back to a stable rim as well as resection of the plica for partial synovectomy. Excess saline was then drained from the knee. A 3-0 nylon simple suture was used for closure of the skin. The patient was placed in a sterile soft dressing and sent to the PACU in stable condition. MMARIELA /[id number]
== END 2019-10-15 10:04 | disposition home or self-care (01) ==
LOC: JD.SDS 06:37
PROVIDERS: ATTEND Orthopaedic Surgery
DX: M94.262 Chondromalacia, left knee (principal); M67.52 Plica syndrome, left knee; M79.4 Hypertrophy of (infrapatellar) fat pad; K21.9 Gastro-esophageal reflux disease without esophagitis; M19.90 Unspecified osteoarthritis, unspecified site; Z88.0 Allergy status to penicillin; Z87.891 Personal history of nicotine dependence; Z79.899 Other long term (current) drug therapy
CPT/HCPCS: 29875; 81025; 87641; A9270; J1100; J1170; J2001; J2250; J2405; J2704; J3010; J3490; J7120; 01400

== ENCOUNTER → 2020-12-20 | Day surgery (SDC) | payer BC ==
[~2020-12-20] MED LIST changes: +Bupivacaine 0.5%/EPINEPHrine 1:200,000 50 ML MDV ONE; -Clindamycin Phosphate 900 MG in Sodium Chloride 0.9% 100 ML IV SCH; -Clindamycin Phosphate in D5W 900 MG in Premix Bag 1 BAG IV ONE; +Dexamethasone 4 MG/ML 5 ML MDV ONE; +Lidocaine 1% 4 ML ONE; +Lidocaine 1% with EPINEPHrine 1:100,000 10 ML MDV ONE; +Midazolam 1 MG/ML 2 ML SDV ONE; +Ondansetron 4 MG/2 ML SDV ONE; +Propofol 200 MG/20 ML SDV ONE; +Scopolamine 1.5 MG Transdermal Patch TRDERM PRN; +fentaNYL 100 MCG/2 ML SDV ONE
--- NOTE | 2020-12-20 09:47 | PCM.PREANE ---
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) Gastrointestinal: Difficulty Swallowing, Other (on meds, feels like its controlled) - Physical Assessment NPO Status Date: 12/19/20 NPO Status Time: 22:00 Weight: 68 kg ASA Class: 2 Mental Status: Alert & Oriented x3 Airway Class: Mallampati = 2 Dentition: Reports: Normal Dentition Thyro-Mental Finger Breadths: 3 Mouth Opening Finger Breadths: 3 ROM/Head Extension: Full Lungs: Clear to Auscultation, Normal Respiratory Effort Cardiovascular: Regular Rate, Regular Rhythm - Lab Values: Laboratory Last Values Urine HCG, Qual Negative (NEGATIVE) 12/20/20 09:15 - Imaging/EKG Impressions: EKG, SR normal - Allergies Allergies/Adverse Reactions: Allergies Allergy/AdvReac Type Severity Reaction Status Date / Time amoxicillin Allergy Airway Verified 10/14/19 15:33 Tightness Penicillins Allergy Anaphylactic Verified 10/14/19 15:33 Shock - Blood Blood Available: No Product(s) Available: None - Anesthesia Plan Pre-Op Medication Ordered: None - Acknowledgements Anesthesia Type Planned: MAC Pt an Appropriate Candidate for the Planned Anesthesia: Yes Alternatives and Risks of Anesthesia Discussed w Pt/Guardian: Yes Pt/Guardian Understands and Agrees with Anesthesia Plan: Yes PreAnesthesia Questionnaire HEENT History: Reports: Impaired Vision Cardiovascular History: Reports: Other (See Below) Other Cardiovascular History: abnormal EKG Respiratory History: Reports: None Gastrointestinal History: Reports: None Genitourinary History: Reports: UTI, Recurrent 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 Musculoskeletal History: Reports: Arthritis, Other (See Below) Other Musculoskeletal History: finger injury, knee pain, gait abnormality Neurological History: Reports: Migraines Psychiatric History: Reports: None Endocrine/Metabolic History: Reports: None Hematologic History: Reports: None Immunologic History: Reports: None Oncologic (Cancer) History: Reports: Cervix Other Oncologic History: pre cancerous cells Dermatologic History: Reports: None - Infectious Disease History Infectious Disease History: Reports: Chicken Pox, Measles - Past Surgical History Head Surgeries/Procedures: Reports: None HEENT Surgical History: Reports: Other (See Below) Other HEENT Surgeries/Procedures: ear surgery Cardiovascular Surgical History: Reports: None Respiratory Surgical History: Reports: None GI Surgical History: Reports: None Female Surgical History: Reports: None Neurological Surgical History: Reports: None Musculoskeletal Surgical History: Reports: Arthroscopic Knee Dermatological Surgical History: Reports: None - HOME MEDS Home Medications: Home Meds Esomeprazole Magnesium [Nexium 24Hr] 20 mg PO DAILY 02/02/17 [History] Norgestimate-Ethinyl Estradiol [Ortho Tri-Cyclen Lo Tablet] 1 tab PO DAILY 02/07/19 [History] Multivitamin [Daily Multiple Vitamin] 1 tab PO DAILY 10/14/19 [History] - CURRENT (IN HOUSE) MEDS Current Meds: Current Medications Lactated Ringer's (Ringers, Lactated) 1,000 mls @ 125 mls/hr IV ASDIRECTED ELIAS Stop: 12/20/20 23:00 Lidocaine/Sodium Bicarbonate (Lidocaine 1%/Sod Bicarbonate In Ns 8.4% 1 Ml Syringe) 0.25 ml IDERM ONETIME PRN PRN Reason: Prior to IV Start Stop: 12/20/20 18:00 Scopolamine (Scopolamine 1.5 Mg Transdermal Patch) 1.5 mg TRDERM Q72H PRN PRN Reason: Nausea Sodium Chloride (Sodium Chloride 0.9% 10 Ml Syringe) 10 ml FLUSH ASDIRECTED PRN PRN Reason: Keep Vein Open Stop: 12/20/20 18:00 Discontinued Medications Bupivacaine HCl/Epinephrine Bitart (Bupivacaine 0.5%/Epinephrine 1:200,000 50 Ml Mdv) Confirm Administered Dose 50 ml .ROUTE .STK-MED ONE Stop: 12/20/20 09:38 Lidocaine/Epinephrine (Lidocaine 1% With Epinephrine 1:100,000 10 Ml Mdv) Confirm Administered Dose 20 ml .ROUTE .STK-MED ONE Stop: 12/20/20 09:38
--- NOTE | 2020-12-20 10:44 | PCM48HPAN ---
Post Anesthesia Note - EVALUATION WITHIN 48HRS OF ANESTHETIC Vital Signs in Normal Range: Yes Patient Participated in Evaluation: Yes Respiratory Function Stable: Yes Airway Patent: Yes Cardiovascular Function Stable: Yes Hydration Status Stable: Yes Pain Control Satisfactory: Yes Nausea and Vomiting Control Satisfactory: Yes Mental Status Recovered: Yes Vital Signs: Last Vital Signs Temp 37.1 C 12/20/20 09:10 Pulse 83 12/20/20 09:10 Resp 16 12/20/20 09:10 BP 153/83 H 12/20/20 09:10 Pulse Ox 95 12/20/20 09:10
--- NOTE | 2020-12-20 10:46 | PCM.PRNOTE ---
- Free Text/Narrative Note: Date: 12/20/2020 Operation: excision of three subcutaneous lipomas involving bilateral upper extremities Surgeon: Willard Olivas MD Findings: Two left upper extremity lipomas, one right upper extremity lipoma, all measuring between 1.5 to 2.5 cm in span. Detailed Report: The patient was taken to the operating room and placed in supine position. Monitored anesthesia care was initiated and timeout was performed. The previously marked sites of subcutaneous lipoma were exposed, prepped and draped in usual sterile fashion. A total of 5 cc 0.5% Marcaine with epinephrine was injected intradermally over the marked sites. The first lesion removed was in the proximal right upper extremity. A 2 cm incision was made over the palpable lipoma. Dissection with a hemostat ensued, until the lipoma was able to be easily expressed into the field. This was removed with minimal additional dissection, and the lesion appeared benign. The skin incision was closed with running 4-0 subcuticular Vicryl suture. The next lipoma was along the proximal part of the ulna on the right upper extremity. This was removed in identical fashion to the previous lipoma. The lesion again appeared consistent with small benign lipoma. This wound was closed with subcuticular Vicryl. Finally, the lesion lateral aspect of the proximal upper left extremity was removed in identical fashion. The wound was closed with running subcuticular Vicryl. All wounds were dressed with Dermabond. The patient tolerated the procedure well.
[2020-12-20 11:55] VITALS: BP 137/92; PULSE 68
== END | disposition home or self-care (01) ==
LOC: JD.SDS 09:07
PROVIDERS: ATTEND Surgery
DX: D17.22 Benign lipomatous neoplasm of skin and subcutaneous tissue of left arm (principal); D17.21 Benign lipomatous neoplasm of skin and subcutaneous tissue of right arm; Z88.0 Allergy status to penicillin; Z88.1 Allergy status to other antibiotic agents; Z87.891 Personal history of nicotine dependence; Z79.899 Other long term (current) drug therapy
CPT/HCPCS: 00400; 81025; A9270-GY; J1100; J2250; J2405; J2704; J3010; J3490; J7120